=== PATIENT | female | born 1975 | race African-American/Black ===

== ENCOUNTER 2016-09-19 11:30 | Emergency (ER) | payer OTHER ==
[2016-09-19 12:29] VITALS: BP 112/77
--- NOTE | 2016-09-19 13:09 | UC ---
Respiratory Complaint HPI - HPI Summary HPI Summary: cough and wheezing for a couple of days-running out of albuterol, She has been using it 3 times a day with fair management of symptoms - History of Current Complaint Chief Complaint: UCRespiratory Stated Complaint: COUGH Time Seen by Provider: 09/19/16 13:01 Hx Obtained From: Patient Hx Last Menstrual Period: 08/31/16 ?: No Onset/Duration: Sudden Onset, Lasting Days - 3, Still Present Timing: Constant Severity Initially: Mild Severity Currently: Mild Pain Intensity: 2 Character: Cough: Nonproductive Aggravating Factors: Nothing Alleviating Factors: Bronchodilator Associated Signs And Symptoms: Positive: Pleuritic Chest Pain, URI - Allergies/Home Medications Allergies/Adverse Reactions: Allergies Allergy/AdvReac Type Severity Reaction Status Date / Time Eggs or Egg-derived Products Allergy UPSET GI Verified 09/19/16 12:29 PMH/Surg Hx/FS Hx/Imm Hx Previously Healthy: No Endocrine History Of: Denies: Diabetes, Thyroid Disease, Hyperthyroidism, Hypothyroidism Cardiovascular History Of: Denies: Cardiac Disorders, Hypertension, Pacemaker/ICD Respiratory History Of: Reports: Asthma - SPORTS INDUCED Neurological History Of: Denies: TIA, Seizures Psychological History Of: Denies: Anxiety, Depression - Surgical History Surgical History: None - Family History Known Family History: Positive: None Family History: denies cardiovascular issues in family lineage - Social History Occupation: Employed Full-time Lives: With Family Alcohol Use: Occasionally Substance Use Type: None Smoking Status (MU): Never Smoked Tobacco Amount Used/How Often: 1/2 PPD X 10+ YEARS When Did the Patient Quit Smoking/Using Tobacco: 3 YEARS AGO Review of Systems Constitutional: Negative Skin: Negative Eyes: Negative ENT: Negative Respiratory: Cough Cardiovascular: Negative Gastrointestinal: Negative Genitourinary: Negative Motor: Negative Neurovascular: Negative Musculoskeletal: Negative Neurological: Negative Psychological: Negative All Other Systems Reviewed And Are Negative: Yes Physical Exam Triage Information Reviewed: Yes Appearance: Well-Appearing, No Pain Distress, Well-Nourished Vital Signs: Initial Vital Signs Temp 98.6 F 09/19/16 12:26 Pulse 58 09/19/16 12:26 Resp 20 09/19/16 12:26 BP 112/77 09/19/16 12:26 Pulse Ox 100 09/19/16 12:26 Vital Signs Reviewed: Yes Eye Exam: Normal Eyes: Positive: Conjunctiva Clear ENT Exam: Normal ENT: Positive: Normal ENT inspection, Hearing grossly normal, Pharynx normal, TMs normal. Negative: Nasal congestion, Nasal drainage, Tonsillar swelling, Tonsillar exudate, Trismus, Muffled/hoarse voice Dental Exam: Normal Neck exam: Normal Neck: Positive: Supple, Nontender, No Lymphadenopathy Respiratory Exam: Other Respiratory: Positive: Chest non-tender, No respiratory distress, No accessory muscle use, Wheezing Cardiovascular Exam: Normal Cardiovascular: Positive: RRR, No Murmur, Pulses Normal, Brisk Capillary Refill Musculoskeletal Exam: Normal Musculoskeletal: Positive: Strength Intact, ROM Intact, No Edema Neurological Exam: Normal Neurological: Positive: Alert, Muscle Tone Normal Psychological Exam: Normal Skin Exam: Normal UC Diagnostic Evaluation - Laboratory O2 Sat by Pulse Oximetry: 100 Respiratory Course/Dx - Course Course Of Treatment: Albuterol, prednisone, increase fluids rest follow with pcp re-check prn - Differential Dx/Diagnosis Differential Diagnosis/HQI/PQRI: Asthma, Bronchitis, Lower Resp Infection Provider Diagnoses: Acute cough, acute asthma Discharge - Discharge Plan Condition: Stable Disposition: HOME Prescriptions: Albuterol HFA INHALER* [Ventolin HFA Inhaler*] 2 puff INH Q4H PRN #1 mdi PRN Reason: cough predniSONE TAB* [Deltasone TAB*] 10 mg PO DAILY #20 tab Patient Education Materials: How to Use a Metered-Dose Inhaler (ED), Acute Bronchitis (ED), Wheezing (ED) Referrals: Natalia Marks MD [Primary Care Provider] - If Needed
== END 2016-09-19 13:24 | disposition home or self-care (01) ==
LOC: UCEAST 11:30
DX: J45.901 Unspecified asthma with (acute) exacerbation (principal); R05 Cough; Z87.891 Personal history of nicotine dependence
CPT/HCPCS: 99212; G0463

== ENCOUNTER 2018-12-29 05:31 | Day surgery (SDC) | payer OTHER ==
[2018-12-29] MEDS ORDERED: Famotidine IV* 10 MG/ML 2 ML (20 mg) ONE (06:01)
[2018-12-29] MEDS ORDERED: ceFAZolin 2 GM PREMIX in ORs 2 GM/50 ML BAG IVPB ONE (06:01)
[2018-12-29] MEDS ORDERED: Lidocaine 2% PF* 10 ML AMP ONE (06:55)
[2018-12-29] MEDS ORDERED: Bupivacaine 0.5%* 50 ML VIAL ONE (06:55)
[2018-12-29] MEDS ORDERED: Dexamethasone IV* 4 MG/ML 1 ML (4 MG) ONE (07:07)
[2018-12-29] MEDS ORDERED: Propofol* 10 MG/ML 20 ML BTL ONE ×2 (07:07→08:10)
[2018-12-29] MEDS ORDERED: Ketorolac INJ* 30 MG/ML 1 ML VIAL ONE (07:07)
[2018-12-29] MEDS ORDERED: Ondansetron INJ* 2 MG/ML VIAL ONE (07:07)
[2018-12-29] MEDS ORDERED: Lidocaine 2% PF * 5 ML VIAL ONE (07:07)
[2018-12-29] MEDS ORDERED: fentaNYL* 50 MCG/ML 2 ML VIAL (100 MCG VIAL) ONE (07:07)
[2018-12-29] MEDS ORDERED: KETAMINE HCL* 50 MG/ML 10 ML VIAL ONE (07:08)
[2018-12-29] MEDS ORDERED: Midazolam* 1 MG/ML 10 ML VIAL (10 MG) ONE (07:08)
[2018-12-29] MEDS ORDERED: fentaNYL* 50 MCG/ML 2 ML VIAL (100 MCG VIAL) IV PRN (08:34)
[2018-12-29] MEDS ORDERED: Ondansetron INJ* 2 MG/ML VIAL IV PRN (08:34)
[2018-12-29] MEDS ORDERED: Naloxone* 0.4 MG/ML 1 ML VIAL IV PRN (08:34)
[2018-12-29] MEDS ORDERED: oxyCODONE/Acetamin 5/325 MG* TAB PO PRN (08:34)
[2018-12-29 10:12] VITALS: BP 113/80
--- NOTE | 2018-12-29 20:16 | OP ---
DATE OF OPERATION: 12/29/18 - [facility] DATE OF : 75 SURGEON: Rashawn Soni MD. FLASH OVEN OPERATOR: JAMAR Richardson. PRE-OP DIAGNOSES: Right tibiotalar bone spurs, anterior impingement. POST-OP DIAGNOSES: Right tibiotalar bone spurs, anterior impingement. OPERATIVE PROCEDURE: Excision of bone spurs right ankle. DESCRIPTION OF PROCEDURE: The patient was taken to the operating room where a thigh tourniquet was inflated. We made a 4 cm longitudinal incision at the interomedial ankle space. We dissected subperiosteally to allow visualization of the anterior tibial and talar neck spurs. All these were removed with the small hook osteotome and rongeur to leave a nice smooth bed. There was no evidence of any impingement after the surgery. We irrigated thoroughly closing the capsule with 2-0 Monocryl, subcu 3-0 Monocryl, and nylon for the skin and a compression dressing splint applied. [id number]/CPS #: [id number] MTDD
== END 2018-12-29 10:38 | disposition home or self-care (01) ==
LOC: OR 05:31
PROVIDERS: ATTEND Orthopaedic Surgery
DX: M25.774 Osteophyte, right foot (principal); M25.771 Osteophyte, right ankle; G47.33 Obstructive sleep apnea (adult) (pediatric); Z87.891 Personal history of nicotine dependence
CPT/HCPCS: 81025; 88304; 88311; J0690; J1100; J1885; J2001; J2250; J2405; J2704; J3010; J3490